=== PATIENT | female | born 1980 | race Hispanic/Latino ===

== ENCOUNTER 2016-04-10 08:44 | Emergency (ER) | payer OTHER ==
[~2016-04-10] VITALS: Ht 149.9 cm; Wt 62.3 kg
[~2016-04-10 08:44] MED LIST: COLL PO; HYDR-4003 PO; HYOS0.1217 PO; PREN1TAB69 PO
[2016-04-10 08:52] VITALS: BP 133/92; PULSE 72; RESP 16; O2SAT 98
--- NOTE | 2016-04-10 09:19 | ED.REPORT ---
HPI- Female Date of Service Apr 10, 2016 ED Provider: Alfredito Goins MD Patient is a 35 year old female who presents to the ED complaining of irregular vaginal bleeding. Associated symptoms include multiple yeast infections, white discharge, dysuria, and cramping. Patient states she has a lump on her cervix that has been bothering her. Her last regular menstrual cycle that was regular was on 03/26 but a week before that she had a day where she "randomly started bleeding" and had "stabbing cramps". She denies fever, pain with intercourse, or any other symptoms. 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 She has not had intercourse in 3 months and has not had any new partners recently. Positive pap smear 18 years ago. Nursing Notes Stated Complaint: FEMALE ISSUES Chief Complaint: Female Abdominal Pain Nursing Notes Reviewed: Yes Allergies: Coded Allergies: No Known Allergies (Verified , 04/10/16) Scheduled Hyoscyamine ODT (Hyoscyamine ODT) 0.125 Mg Tab.rapdis 0.125 MG PO Q4H Nitrofurantoin Monohyd/M-Cryst (MacroBid) 100 Mg Capsule 100 MG PO BID Peg/Electrolytes (Golytely Solution) 4,000 Ml Soln 4,000 ML PO ONCE Vit/Fe Fumarate/Fa-Expunged Drug, Do (-Expunged Drug, Do Not Renew!) 1 Each Tablet 1 EACH PO DAILY Scheduled PRN Hydrocodone-Acetaminophen 5-325 mg (Hydrocodone-Acetaminophen 5-325 mg) 1 Each Tablet 1-2 TABLET PO Q4H PRN PRN For Pain General Time Seen by MD: 09:11 Chief Complaint Vaginal bleeding... Hx Obtained From: Patient Arrived By: Walk-in Sudden in Onset?: Yes Onset Occurred: More than a week ago... (3 weeks) Past Medical History Past Medical History Reports: Hypertension Past Surgical History Reports: Tubal ligation Family History Reports: Hypertension Smoking History Current Every Day Smoker Social History Alcohol Use: "Social" Drug Use: Denies drug use Other Social History: Good social support, , Local resident Ambulatory Status Independent Review of Systems -pain with intercourse Constitutional: Denies: Fever Female: Reports: Dysuria, Pelvic pain (Cramping ), Vaginal bleeding - abnl, Vaginal discharge (White ), Denies: Complete sys rev & neg: except as marked. Physical Exam Initial Vital Signs Vital Signs (First) Date Time Temp Pulse Resp B/P Pulse Ox O2 Delivery O2 Flow Rate FiO2 04/10/16 08:52 36.5 72 16 133/92 98 Room Air General/Constitutional: Well-developed, Well-nourished Head / Eyes: Atraumatic, Normocephalic Neck: Full range of motion Respiratory: No respiratory distress Extremities: No swelling Skin: Warm, Dry Neurologic: Alert, Oriented, Nonfocal Psychiatric: Mood/affect normal, Behavior normal, Normal thought content Female Genitourinary: Cloth Presser present, External genitalia NL Pelvic Exam: Positive: Cervical motion tend..., Negative: Uterus enlarged purulent discharge in vaginal wall Erythematous cervix Abnormally firm texture with no definite mass Poor tolerance of exam Interpretation & Diagnostics Lab Results Interpretation Test 04/10/16 10:30 04/10/16 10:50 Urine Color Straw (YELLOW) Urine Appearance Hazy (CLEAR,HAZY) Urine pH 6.5 (5.0-8.0) Urine Specific [place] 1.010 (1.003-1.035) Urine Protein Negativemg/dL (NEG,TRACE) Urine Glucose (UA) Negativemg/dL (NEGATIVE) Urine Ketones 15mg/dL (NEGATIVE) Urine Occult Blood Small (NEGATIVE) Urine Nitrite Negative (NEGATIVE) Urine Bilirubin Negative (NEGATIVE) Urine Urobilinogen Normalmg/dL (NORMAL) Urine Leukocyte Esterase Large (NEGATIVE) Urine RBC 0-2/hpf (0-2) Urine WBC 11-50/hpf (0-5) Urine Epithelial Cells Occasional/hpf (NONE-MOD) Urine Crystals None seen (NONE SEEN) Urine Bacteria Few/hpf (NONE-FEW) Urine Hyaline Casts None/lpf (NONE) Urine Granular Casts None seen (NONE SEEN) Urine Waxy Casts None seen (NONE SEEN) Urine Red Blood Cell Casts None seen (NONE SEEN) Urine White Blood Cell Casts None seen (NONE SEEN) Urine Mucus None seen (None Seen) Urine Trichomonas None seen (NONE SEEN) Urine Yeast Few (NONE SEEN) Urinalysis Comment None Urine Culture Reflexed Indicated Lab Results Interpretation: urine preg negative vag wet prep: mod white cells no yeast or other abnormalities Re-Eval/Medical Decision Re-Evaluation/Progress : Time of Eval: 11:20 Re-Evaluation/Progress Note: Discussed plan for discharge with follow up. Patient understands and agrees with plan. All questions addressed at this time. Counseled Regarding: Diagnosis, Lab results, Need for follow-up, When/why to return to ED Discharge & Departure Impression: Primary Impression: Pelvic inflammatory disease (PID) Additional Impression: Urinary tract infection Urinary tract infection type: acute cystitis Hematuria presence: without hematuria Qualified Code: N30.00 - Acute cystitis without hematuria Disposition: Home Discharge Condition All VS Reviewed: Yes Condition: Stable Patient Instructions: Pelvic Inflammatory Disease (ED) Additional Instructions: ED evaluation included interview exam and ua, we also sent a test for GC and chlamydia. Cervical "bump" you noted should be further evaluated, start with your primary care doctor for this. We treated for PID as a precaution. We prescribed macro-bid for a possible UTI. Take this as prescribed. Call in 2 days for results of testing. Return to ED for fevers, vomiting or severe pelvic or flank pain. Referrals: Fermin Dumont MD (PCP) Scribe Attestation Portions of this note were transcribed by Elia Pantoja. I, Dr. Goins personally performed the history, physical exam and medical decision-making; I reviewed and confirmed the accuracy of the information in the transcribed note. Signed by: Elia Pantoja 04/10/16, 1139 copies to: Fermin Dumont MD, Donald L MD Apr 10, 2016 09:19 ELIA PANTOJA Apr 10, 2016 09:29
[2016-04-10] MEDS ORDERED: cefTRIAXone Inj 250 MG, Lidocaine PF 1% Inj 0.9 ML in Syringe 1 EACH IM ONE (10:45)
[2016-04-10 11:19] LABS: APPEARANCE,URINE HAZY (CLEAR,HAZY); COLOR,URINE STRAW (YELLOW); PH,URINE 6.5 (5.0-8.0)
[2016-04-10 11:20] LABS: OCCULT BLOOD,URINE SMALL (NEGATIVE); UROBILINOGEN,URINE NORMAL (NORMAL)
[2016-04-10 11:21] LABS: YEAST,URINE FEW (NONE SEEN)
[2016-04-10] MEDS ORDERED: NITR100 PO (11:39)
[2016-04-10 12:23] VITALS: BP 133/92; PULSE 72; RESP 16; O2SAT 98
[2016-05-21] MEDS ORDERED: HYDR-4003 PO (12:20)
[2016-05-21] MEDS ORDERED: OXYC1TAB24 PO (12:20)
== END 2016-04-10 11:40 | disposition home or self-care (01) ==
LOC: SED 08:44
DX: N73.9 Female pelvic inflammatory disease, unspecified (principal); N30.00 Acute cystitis without hematuria; I10 Essential (primary) hypertension; F17.200 Nicotine dependence, unspecified, uncomplicated; Z98.51 Tubal ligation status
CPT/HCPCS: 81000; 81025; 87086; 87088; 87210; 87491; 87591; 96372; 99284; J0696

== ENCOUNTER 2016-05-22 06:47 | Day surgery (SDC) | payer OTHER ==
[2016-05-22] VITALS (13 sets, daily range): BP systolic 102–135; BP diastolic 61–88; PULSE 65–102; RESP 11–21; O2SAT 95–100
[~2016-05-22] VITALS: Ht 149.9 cm; Wt 61.3 kg
[~2016-05-22 06:47] MED LIST changes: -COLL PO; -HYOS0.1217 PO; +OXYC1TAB24 PO; -PREN1TAB69 PO
[2016-05-22] MEDS ORDERED: Propofol 10,000 mCg/mL 20 mL Inj ONE (06:48)
[2016-05-22] MEDS ORDERED: Dexamethasone 4 mg/mL Inj ONE (06:48)
[2016-05-22] MEDS ORDERED: fentaNYL-PF 50 mCg/mL 2 mL Inj ONE (06:48)
[2016-05-22] MEDS ORDERED: Ondansetron 2 mg/mL 2 mL Inj ONE (06:48)
[2016-05-22] MEDS: Lactated Ringer's 1,000 ML IV SCH ×2 (07:22→08:32)
[2016-05-22 08:15] LABS: BASOPHILS % (AUTO) 0.3 % (0-3); EOSINOPHILS % (AUTO) 0.8 % (0-5); MONOCYTES % (AUTO) 7.2 % (4-12); Mean Corpuscular Hemoglobin 35.1 pg (27.0-35.0); Mean Corpuscular Volume 102.1 fL (81-100); NEUTROPHILS % (AUTO) 67.5 % (40-74); Platelet Count 227 bil/L (150-400)
--- NOTE | 2016-05-22 08:19 | PCM.HPANE ---
Patient Data Date of Service: May 22, 2016 Surgeon Admitting Provider: Attending Provider:Harley Manning MD Primary Care Physician:Annel Hernández Other Provider:Aniyah Melgar Anesthesia Reason for Visit Uterine Leiomyoma, Pelvic Pain Ht/WT & BMI Height (Feet): 4 Height (Inches): 11 Weight (Kilograms): 61.3 Body Mass Index 27.00 Allergies Coded Allergies: No Known Allergies (Verified , 04/10/16) Past Anesthesia History Anesthesia History: Denies:: Anesthesia Reactions Diabetes History Hx Diabetes?: No Medications Home Meds Incl Beta Roseann: No Reported Medications oxyCODONE-Acetaminophen 5-325 mg 1 Each Tablet1 Tab PO Q6H PRN For Pain Ref 0 05/21/16 Discontinued Reported Medications Hydrocodone-Acetaminophen 5-325 mg 1 Each Tablet1 Tablet PO Q6H PRN For Pain Ref 0 05/21/16 Vit/Fe Fumarate/Fa-Expunged Drug, Do (-Expunged Drug, Do Not Renew!)1 Each Tablet1 Each PO DAILY 03/27/11 Discontinued Scripts Nitrofurantoin Monohyd/M-Cryst (MacroBid)100 Mg [id number] Mg PO BID #10 CAPSULE Ref 0 Prov:Alfredito Goins MD 04/10/16 Hyoscyamine ODT 0.125 Mg Tab.rapdis0.125 Mg PO Q4H #10 TABLET Prov:Asher Almonte MD 10/18/15 Peg/Electrolytes (Golytely Solution)4,000 Ml Soln4,000 Ml PO ONCE #1 BOTTLE Prov:Asher Almonte MD 10/18/15 Hydrocodone-Acetaminophen 5-325 mg 1 Each Tablet1-2 Tablet PO Q4H PRN For Pain # 20 TABLET Prov:Saji Pires MD 04/10/15 History History of ENT Problems?: No Hx of Heart Problems?: No Cardiovascular History: Denies:: Congestive Heart Failure Hypertension Hx of Respiratory Problem?: No Respiratory History: Denies:: Oxygen Administration Tuberculosis Use of C-PAP Machine Hx Neurologic Problems?: No Neurological History: Denies:: Multiple Sclerosis Parkinson's Disease Seizures Hx of GI Problems?: No Hx of Problems?: No Female Hx: Denies:: Currently (HX TUBAL LIGATION 2011) Problems with Breasts? Skin History: Denies:: History Skin Disorders? Pressure Ulcers Hx Musculoskeletal Problems?: Yes Musculoskeletal History: Positive for:: Back Injury (hx of back pain) Denies:: Joint Replacement Hx of Psycho/Social Problems?: No Hx Surgeries?: Yes (PPTL, LEEP) Hx Any Other Health Problems?: Yes Other History: Denies:: Cancer Thyroid Disease Hx Diabetes: No Hx Alcohol Use: Yes ("social")Hx Substance Use: No Smoking Status: Current Every Day Smoker Have You Smoked inLast 12 mo: Yes Stop/Bang P-Blood Pressure: treated: No B- Body Mass Index > 35 kg/m2: No A- Age over 50: No N- Neck Large Circumference: No G- Gender Male: No GRAY Risk Assessment: Low Risk, <3 Yes Risk Assessment Category Category 1A: Patient has history of documented sleep apnea, and HAS NOT received any narcotic, sedative or anesthesia administration during this stay. Category 1B: Patient has history of documented sleep apnea, and HAS received any narcotic , sedative or anesthesia administration during this stay Category 2: Patient has SUSPECTED Obstructive Sleep Apnea, and HAS received any narcotic , sedative or anesthesia administration during this stay. Category 3: Patient has SUSPECTED Obstructive Sleep Apnea and HAS NOT received narcotic, sedative or anesthesia administration during this stay. Category 4: Outpatient in Procedural Areas with known sleep apnea or who screen positive for High Risk via the STOP/BANG questionnaire. Exam Exam Vital Signs Vital Signs Date Time Temp Pulse Resp B/P Pulse Ox O2 Delivery O2 Flow Rate FiO2 05/22/16 07:30 36.2 65 16 107/80 98 Room Air General Appearance: Alert, Oriented X3, Cooperative, No Acute Distress HEENT/AIRWAY: MP 1 Lungs: Normal Air Movement Heart: Exam Unremarkable Meds/Labs/Diagnostics Admission Meds Current Medications Lactated Ringer's (Lr) 1,000 ml @ 10 mls/hr Q24H IV Last administered on 07:22; Start 05/22/16 at 05:00; Stop 05/26/16 at 08:59 Doxycycline Hyclate (VibraTabs) 100 mg PREOP PO Last administered on 05/22/16 07:39; Start 05/22/16 at 06:00; Stop 05/22/16 at 06:01; Status DC Plan Impression Patient chart reviewed, patient interviewed and anesthestic plan with risks, benefits, and alternatives discussed, and informed consent obtained. NPO Status: 199905/21/16 ASA Physical Status: ASA2 Mod Systemic Disease Anesthetic Plan: GA Bene/Risks/Altern/Consents: Yes HP Complete Prior to Induction: Yes Noe Fritz MD May 22, 2016 07:46
[2016-05-22] MEDS ORDERED: Lactated Ringer's 1,000 ML IV SCH (08:48)
[2016-05-22] MEDS ORDERED: Lactated Ringer's 500 ML IV PRN (08:48)
[2016-05-22] MEDS ORDERED: Dexamethasone 4 mg/mL Inj IVPUSH PRN (08:50)
[2016-05-22] MEDS ORDERED: Phenylephrine 10,000 mCg/mL Inj IVPUSH PRN (08:50)
[2016-05-22] MEDS ORDERED: hydrALAZINE 20 mg/mL Inj IVPUSH PRN (08:50)
[2016-05-22] MEDS ORDERED: Labetalol 5 mg/mL 4 mL Inj IV PRN (08:50)
[2016-05-22] MEDS ORDERED: Atropine 0.4 mg/mL Inj IVPUSH PRN (08:50)
[2016-05-22] MEDS ORDERED: EPHEDrine Sulfate 50 mg/mL Inj IVPUSH PRN (08:50)
[2016-05-22] MEDS ORDERED: Ondansetron 2 mg/mL 2 mL Inj IVPUSH PRN ×2 (08:50→09:35)
[2016-05-22] MEDS ORDERED: MetoCLOpramide 5 mg/mL 2 mL Inj IVPUSH PRN (08:50)
[2016-05-22 09:28] LABS: APPEARANCE,URINE HAZY (CLEAR,HAZY); COLOR,URINE STRAW (YELLOW); OCCULT BLOOD,URINE SMALL (NEGATIVE); UROBILINOGEN,URINE NORMAL (NORMAL)
[2016-05-22] MEDS ORDERED: diphenhydrAMINE 25 mg Capsule PO PRN (09:35)
[2016-05-22] MEDS ORDERED: oxyCODONE-Acetamin 5-325 mg Tablet PO PRN (09:35)
--- NOTE | 2016-05-22 09:37 | PCM.DIMED ---
Discharge Instructions Date of Service May 22, 2016 Dates of Hospitalization Diet No restrictions Activity No restrictions Call your provider Fever or Chills, Shortness of breath, Bleeding, Chest pain, Vomitting, Excessive diarrhea, Weakness (unilateral) Patient Instructions Follow-up with PCP in: 2 weeks Harley Manning MD May 22, 2016 09:37
--- NOTE | 2016-05-22 09:43 | PCM.ANEP1 ---
Post Anesthesia Phase 1 PACU Phase 1 Assessment Date of Service: May 22, 2016 Vital Signs Vital Signs Date Time Temp Pulse Resp B/P Pulse Ox O2 Delivery O2 Flow Rate FiO2 05/22/16 07:30 36.2 65 16 107/80 98 Room Air Anesthetic Administered: GA Level of Alertness: Sleeping, hard to arouse Pain: No Nausea or Vomiting: No Oxygen Delivery: Nasal Cannula Lungs: Normal Air Movement Noe Fritz MD May 22, 2016 09:43
[2016-05-22] MEDS: fentaNYL-PF 50 mCg/mL 2 mL Inj IVPUSH PRN ×2 (09:44→09:55)
--- NOTE | 2016-05-22 10:11 | OP ---
[address] [address] OPERATIVE REPORT PATIENT: GISELLE FLOWERS : 1980 MR#: [id number] ADMIT: 05/22/2016 JOB ID: [id number] DATE OF SURGERY: 05/22/2016 PROCEDURE: 1. Cervical myomectomy. 2. Hysteroscopy. PREOPERATIVE DIAGNOSIS(ES): 1. Cervical leiomyoma. 2. Vaginal pain. 3. Vaginal bleeding. POSTOPERATIVE DIAGNOSIS(ES): 1. Cervical leiomyoma. 2. Vaginal pain. 3. Vaginal bleeding. SURGEON: Harley Manning MD ESTIMATED BLOOD LOSS: 5 mL. ESTIMATED URINE OUTPUT: 50 mL. FLUIDS: 700 mL of lactated Ringer. ANESTHESIA: General. COMPLICATIONS: None. FINDINGS: Cervical fibroid measuring 1.5 cm compressing the surrounding cervical tissue and causing pain. Normal appearance of the uterus. Normal appearance of the vagina and perineum. PROCEDURE DESCRIPTION: The patient was brought to the operating room, where she underwent general anesthesia without difficulty. The patient was placed in a dorsal lithotomy position using Justen stirrups. She was prepped and draped in the usual surgical fashion. Two Rockwell retractors were placed in the vagina. The cervix was identified and grasped with a tenaculum. The cervix was dilated using Hegar dilators to the size of 8 mm. Using MyoSure hysteroscope, the uterine cavity was reviewed, no abnormalities were found. The only problem that the patient had was a protruding, firm cervical fibroid. Using electrocautery with the settings at 60 maldonado for the cut and 60 maldonado for coags, and a loop measuring 15 mm with a weight of 15 mm with a depth, the excision of the fibroid was performed. This was completed using a standard Bovie instrument with the same settings. The area was then coagulated with electrocautery ball and application of Monsel solution. Good hemostasis was achieved. All the instruments were removed. The patient was repositioned back into the supine position. She tolerated the procedure well and was transferred to the recovery room in stable condition.
--- NOTE | 2016-05-22 10:12 | PCM.ANEP2 ---
Post Anesthesia Evaluation ASA/CMS Post Anesthesia Date of Service: May 22, 2016 VS in Patient's Normal Range?: Yes Resp Stable; Airway Patent?: Yes CV Function & Hydration Stable: Yes Mental Status Recovered?: Yes Pain control Satisfactory?: Yes N/V Control Satisfactory?: Yes Noe Fritz MD May 22, 2016 10:12
[2016-05-22] MEDS: HYDROmorphone 1 mg/mL Inj IVPUSH PRN ×2 (10:25→10:38)
--- NOTE | 2016-05-23 14:19 | PATH ---
SURGICAL PATHOLOGY Attending Physician:Harley Manning MD CASE STATUS: Signed Out PATIENT NAME: GISELLE FLOWERS PID: [id number] : 1980 DATE COLLECTED:05/22/2016 15:15 SPECIMEN: Uterus, Fibroid (separate surgical procedure) CLINICAL HISTORY: CERVICAL LEIOMYOMA 1). CERVICAL FIBROID FINAL DIAGNOSIS: Specimen Designated Cervical Fibroid: Cervical tissue containing vascular leiomyoma. Chronic cervicitis with prominent squamous metaplasia, negative for atypia. ICD10: D25.9 GROSS DESCRIPTION: The specimen is received in one formalin filled container labeled with the patient's name, sublabeled "cervical fibroid" and consists of 2 pink-mcgill rough portions of tissue which aggregate to 1.8 x 1.8 x 0.8 CM. The first piece is sectioned into 4 pieces and entirely submitted in cassette A. the second piece is sectioned into 4 pieces and entirely submitted in cassette B. 05/22/2016 [facility] ICD-9 CODES: CPT CODES: 1: 23142 Electronically Signed Out Alfredito Tobin MD [facility] Pathology [facility] [address], [place] [address] Technical component performed at [facility], [facility], [facility] [address], [place], [address]
== END 2016-05-22 23:59 | disposition home or self-care (01) ==
LOC: SAS 06:47
PROVIDERS: ATTEND Legal Medicine
DX: D25.9 Leiomyoma of uterus, unspecified (principal); R10.2 Pelvic and perineal pain; N72 Inflammatory disease of cervix uteri; F17.210 Nicotine dependence, cigarettes, uncomplicated

== ENCOUNTER 2016-10-04 11:29 | Emergency (ER) | payer OTHER ==
[~2016-10-04] VITALS: Ht 149.9 cm; Wt 61.8 kg
[2016-10-04 11:51] VITALS: BP 116/85; PULSE 80; RESP 16; O2SAT 98
--- NOTE | 2016-10-04 12:04 | ED.REPORT ---
HPI-Back Pain Under 40 Date of Service Oct 04, 2016 ED Provider: Ziyad Rangel Patient is a 36 year old female with a hx of osteoarthritis and HTN who presents to the ED complaining of sacral pain s/p falling twice while hiking. She denies hitting her head. She denies incontinence, numbness, weakness, tingling, or any other symptoms. She is currently on Amoxicillin for tonsillitis. Nursing Notes Stated Complaint: LOWER BACK PAIN Chief Complaint: Back Pain or Injury Nursing Notes Reviewed: Yes Allergies: Coded Allergies: No Known Allergies (Verified , 04/10/16) Scheduled PRN Hydrocodone-Acetaminophen 5-325 mg (Hydrocodone-Acetaminophen 5-325 mg) 1 Each Tablet 1 TABLET PO Q4H PRN PRN For Pain General Time Seen by MD: 12:04 Chief Complaint Back pain Hx Obtained From: Patient Arrived By: Walk-in Sudden in Onset?: Yes Onset Occurred: Yesterday Symptom Duration: Since onset Caused by: Fall Past Medical History Past Medical History osteoarthritis Reports: Hypertension Past Surgical History Reports: Tubal ligation Family History Reports: Hypertension Smoking History Current Every Day Smoker Social History Alcohol Use: "Social" Drug Use: Denies drug use Other Social History: Good social support, , Local resident Ambulatory Status Independent Review of Systems Review of Systems Note: -tingling Female: Denies: Incontinence Musculoskeletal: Reports: Back pain Neurologic: Denies: Bladder dysfunction, Bowel dysfunction, Numbness, Weakness Complete sys rev & neg: except as marked. Physical Exam Initial Vital Signs Vital Signs (First) Date Time Temp Pulse Resp B/P Pulse Ox O2 Delivery O2 Flow Rate FiO2 10/04/16 11:51 36.4 80 16 116/85 98 Room Air Initial VS: Reviewed, Vital signs normal Head / Eyes: Atraumatic, Normocephalic Neck: Full range of motion Respiratory: No respiratory distress Abdomen / GI: Soft, Non-tender Skin: Warm, Dry Psychiatric: Mood/affect normal, Behavior normal, Normal thought content General/Constitutional: Awake, Alert Distress / Hydration: Positive: Distress moderate Back: Atraumatic Diffuse sacral tenderness Neurologic: Oriented X3, Speech NL Interpretation & Diagnostics X-Ray Interpretation Xray Interpretation: IMPRESSION: Lucency in the coccyx suspicious for nondisplaced fracture. Please correlate with clinical data. Dictated by: Eva Wright MD, PhD on 10/04/2016 at 13:00 Approved by: Eva Wright MD, PhD on 10/04/2016 at 13:02 Study Performed: Sacrum and coccyx xray Interpretation / Wet Read by: Interpret - Radiologist Xray Interpretation: IMPRESSION: No fracture. No acute osseous lesion. If symptoms and/or clinical suspicion for pathology persists, MRI may be helpful for further assessment. Dictated by: Eva Wright MD, PhD on 10/04/2016 at 12:58 Approved by: Eav Wright MD, PhD on 10/04/2016 at 12:59 Study Performed: Lumbar spine Interpretation / Wet Read by: Interpret - Radiologist Re-Eval/Medical Decision Med Decision/Clinical Course 36-year-old female presenting with low back pain status post ground level fall on hiking onto her buttocks. She is tender over her coccyx. She has anondisplaced fracture of her coccyx. No red flag symptoms. He was counseled regarding her diagnosis, treatment and to follow up with primary doctor in several days. Return precautions given. Re-Evaluation/Progress : Time of Eval: 13:42 Re-Evaluation/Progress Note: Discussed plan for discharge. Patient understands and agrees with plan. All questions addressed at this time. Counseled Regarding: Diagnosis, Lab results, Need for follow-up, When/why to return to ED Discharge & Departure Impression: Primary Impression: Coccygeal fracture Encounter type: initial encounter Fracture type: closed Qualified Code: S32.2XXA - Fracture of coccyx, initial encounter for closed fracture Disposition: Home All VS Reviewed: Yes Condition: Stable Patient Instructions: Coccyx Injury (ED) Additional Instructions: Thank you for entrusting us with your care. Your X-Ray indicates you have a coccygeal fracture. Do not take Ibuprofen. Take Tylenol as needed for pain and the medication prescribed for worsening pain. Buy a donut shaped cushion to use while sitting and be sure to sit forward. You may experience pain for weeks to months. Follow up with your primary doctor within 2-3 days Return to the emergency department if you experience numbness, weakness, tingling, incontinence, or any other symptoms. Referrals: Annel Hernández (PCP) Scribe Attestation Portions of this note were transcribed by Elia Rodriguez. I, Dr. Rangel personally performed the history, physical exam and medical decision-making; I reviewed and confirmed the accuracy of the information in the transcribed note. Signed by: Pilar Page, 10/04/16 at 1346 copies to: Annel Hernández Ben M MD Oct 04, 2016 12:04 ELIA RODRIGUEZ Oct 04, 2016 12:16
--- NOTE | 2016-10-04 13:00 | DRSVH ---
PROCEDURE: X-RAY LUMBAR SPINE, 2 OR 3 VIEW INDICATIONS: trauma TECHNIQUE: 3 views of the lumbar spine were acquired. COMPARISON: None. FINDINGS: Bones: 5 [id number] vertebrae are present. There is normal bony alignment. No vertebral body compression fractures. No suspicious bony lesions. Soft tissues: Overlying bowel gas pattern is normal. No suspicious soft tissue calcifications. IMPRESSION: No fracture. No acute osseous lesion. If symptoms and/or clinical suspicion for patholog y persists, MRI may be helpful for further assessment. Dictated by: Eva Wright MD, PhD on 10/04/2016 at 12:58 Approved by: Eva Wright MD, PhD on 10/04/2016 at 12:59
--- NOTE | 2016-10-04 13:03 | DRSVH ---
PROCEDURE: X-RAY SACRUM AND COCCYX, MINIMUM THREE VIEWS ([id number]) INDICATIONS: trauma TECHNIQUE: 3 views of the sacrum and coccyx acquired. COMPARISON: None. FINDINGS: Bones: Lucency noted in the coccyx suspicious for nondisplaced fracture. No suspicious bony lesions. Soft tissues: Visualized bowel gas pattern is normal. No suspicious soft tissue densities. IMPRESSION: Lucency in the coccyx suspicious for nondisplaced fracture. Please correlate with clinica l data. Dictated by: Eva Wright MD, PhD on 10/04/2016 at 13:00 Approved by: Eva Wright MD, PhD on 10/04/2016 at 13:02
[2016-10-04] MEDS ORDERED: HYDR-4003 PO (13:48)
[2016-10-04 14:01] VITALS: BP 130/91; PULSE 74; O2SAT 95
== END 2016-10-04 13:51 | disposition home or self-care (01) ==
LOC: SED 11:29
DX: S32.2XXA Fracture of coccyx, initial encounter for closed fracture (principal); W18.39XA Other fall on same level, initial encounter; Y93.01 Activity, walking, marching and hiking; Y92.89 Other specified places as the place of occurrence of the external cause; Y99.8 Other external cause status; J03.90 Acute tonsillitis, unspecified; I10 Essential (primary) hypertension; F17.200 Nicotine dependence, unspecified, uncomplicated
CPT/HCPCS: 72100; 72220; 96372; 99284; J1885